=== PATIENT | female | born 1995 | race Caucasian/White ===

== ENCOUNTER 2017-10-08 10:42 | Inpatient (IN) | payer OTHER ==
[2017-10-08 12:16] LABS: ADD MAN DIFF? NO
[2017-10-08 12:18] LABS: WHITE BLOOD COUNT 7.9 10^3/ul (4.8-10.8)
[2017-10-08 12:18] LABS: BASOPHIL # 0.1 10^3/ul (0.0-0.1); BASOPHILS % 0.8 % (0.0-2.0); EOSINOPHILS # 0.3 10^3/ul (0.0-0.5); EOSINOPHILS % 3.2 % (0.0-7.0); HEMATOCRIT 38.8 % (37.0-47.0); HEMOGLOBIN 12.9 g/dl (12.0-16.0); LYMPHOCYTES # 1.6 10^3/ul (0.8-2.9); LYMPHOCYTES % 20.4 % (15.0-51.0); MEAN CORPUSCULAR HEMOGLOBIN 31.6 pg (29.0-33.0); MEAN CORPUSCULAR HGB CONC 33.2 g/dl (32.0-37.0); MEAN CORPUSCULAR VOLUME 95.1 fl (82.0-101.0); MEAN PLATELET VOLUME 9.9 fl (7.4-10.4); MONOCYTE # 0.5 10^3/ul (0.3-0.9); MONOCYTES % 6.7 % (0.0-11.0); NEUTROPHIL # 5.4 10^3/ul (1.6-7.5); NEUTROPHILS % 68.4 % (39.0-77.0); PLATELET COUNT 336 10^3/UL (140-415); RED BLOOD COUNT 4.08 10^6/ul (4.20-5.40); RED CELL DISTRIBUTION WIDTH 12.9 % (11.5-14.5)
[2017-10-08 12:46] LABS: ALANINE AMINOTRANSFERASE 37 IU/L (13-69); ALBUMIN 4.6 g/dl (3.3-4.9); ALBUMIN/GLOBULIN RATIO 1.21; ALKALINE PHOSPHATASE 75 IU/L (42-121); ANION GAP 14 (8-16); ASPARTATE AMINO TRANSFERASE 34 IU/L (15-46); BILIRUBIN,INDIRECT 0.3 mg/dl (0-1.1); BILIRUBIN,TOTAL 0.3 mg/dl (0.2-1.3); BLOOD UREA NITROGEN 8 mg/dl (7-20); CALCIUM 9.3 mg/dl (8.4-10.2); CARBON DIOXIDE 24 mmol/L (21-31); CHLORIDE 107 mmol/L (97-110); CREATININE 0.51 mg/dl (0.44-1.00); GLUCOSE 88 mg/dl (70-220); POTASSIUM 4.4 mmol/L (3.5-5.1); SODIUM 141 mmol/L (135-144); TOTAL PROTEIN 8.4 g/dl (6.1-8.1)
[2017-10-08 12:53] LABS: ADD UMIC YES; UR ASCORBIC ACID NEGATIVE (NEGATIVE); UR BILIRUBIN (Dip) NEGATIVE (NEGATIVE); UR BLOOD (Dip) 2+ mg/dL (NEGATIVE); UR CLARITY CLEAR (CLEAR); UR COLOR YELLOW (YELLOW); UR GLUCOSE (Dip) NEGATIVE (NEGATIVE); UR KETONES (Dip) NEGATIVE (NEGATIVE); UR LEUKOCYTE ESTERASE (Dip) NEGATIVE Leu/ul (NEGATIVE); UR NITRITE (Dip) NEGATIVE (NEGATIVE); UR RBC 3 /HPF (0-5); UR SPECIFIC GRAVITY (Dip) 1.012 (1.003-1.030); UR TOTAL PROTEIN (Dip) NEGATIVE (NEGATIVE); UR UROBILINOGEN (Dip) NEGATIVE (NEGATIVE); UR WBC 1 /HPF (0-5)
[2017-10-08] MEDS ORDERED: ACETAMINOPHEN 325 MG TAB PO (16:30)
[2017-10-08] MEDS ORDERED: ONDANSETRON 4 MG INJ IV (16:30)
[2017-10-09 05:59] LABS: ADD MAN DIFF? NO
[2017-10-09 06:04] LABS: BASOPHILS % 0.5 % (0.0-2.0); EOSINOPHILS # 0.4 10^3/ul (0.0-0.5); EOSINOPHILS % 4.6 % (0.0-7.0); HEMATOCRIT 35.5 % (37.0-47.0); HEMOGLOBIN 11.9 g/dl (12.0-16.0); LYMPHOCYTES # 1.8 10^3/ul (0.8-2.9); LYMPHOCYTES % 24.2 % (15.0-51.0); MEAN CORPUSCULAR HEMOGLOBIN 31.9 pg (29.0-33.0); MEAN CORPUSCULAR HGB CONC 33.5 g/dl (32.0-37.0); MEAN CORPUSCULAR VOLUME 95.2 fl (82.0-101.0); MEAN PLATELET VOLUME 10.1 fl (7.4-10.4); MONOCYTE # 0.8 10^3/ul (0.3-0.9); MONOCYTES % 10.4 % (0.0-11.0); NEUTROPHIL # 4.5 10^3/ul (1.6-7.5); PLATELET COUNT 318 10^3/UL (140-415); RED BLOOD COUNT 3.73 10^6/ul (4.20-5.40)
[2017-10-09 06:04] LABS: WHITE BLOOD COUNT 7.6 10^3/ul (4.8-10.8)
[2017-10-09] MEDS ORDERED: ALBUMIN HUMAN 5% 250 ML INJ (07:00)
[2017-10-09] MEDS ORDERED: GLYCOPYRROLATE 0.4 MG INJ (07:00)
[2017-10-09] MEDS ORDERED: NEOSTIGMINE 3 MG/3 ML SYRINGE (07:00)
[2017-10-09] MEDS: LACTATED RINGER'S 1,000 ML IV ×2 (12:31→20:00)
[2017-10-09] MEDS ORDERED: MIDAZOLAM 1 MG/ML 2 ML INJ (19:21)
[2017-10-09] MEDS ORDERED: ROCURONIUM 50 MG INJ (19:21)
[2017-10-09] MEDS ORDERED: PROPOFOL 20 ML (19:21)
[2017-10-09] MEDS ORDERED: METOCLOPRAMIDE 10 MG INJ (19:22)
[2017-10-09] MEDS ORDERED: ROPIVACAINE 0.5 % 30 ML VIAL (19:22)
[2017-10-09] MEDS ORDERED: ONDANSETRON 4 MG INJ (19:22)
[2017-10-09] MEDS ORDERED: HYDROmorphONE 1 MG/5 ML IV SYRINGE IV (19:30)
[2017-10-09] MEDS ORDERED: DIPHENHYDRAMINE 50 MG INJ IV (19:30)
[2017-10-09] MEDS: VASOPRESSIN 20 UNITS INJ (20:15)
[2017-10-09] MEDS ORDERED: ACETAMINOPHEN 1000MG/100ML IV 100 ML (20:38)
[2017-10-09] MEDS ORDERED: HYDROmorphONE 2 MG/ML SYG (20:38)
[2017-10-09] MEDS ORDERED: CEFAZOLIN 1 GM INJ (20:38)
[2017-10-09] MEDS ORDERED: KETOROLAC 30 MG INJ (20:58)
[2017-10-09] MEDS: ONDANSETRON 4 MG INJ IV (21:40)
[2017-10-09] MEDS: HYDROmorphONE 1 MG/5 ML IV SYRINGE IV ×3 (21:40→22:28)
[2017-10-09] MEDS: MEPERIDINE 25 MG INJ IV (21:41)
[2017-10-10] MEDS: LACTATED RINGER'S 1,000 ML IV ×2 (02:36→14:01)
[2017-10-10] MEDS: OXYCODONE/ACETAMINOPHEN (5/325) TAB PO ×5 (03:00→22:26)
[2017-10-10] MEDS: IBUPROFEN 600 MG TAB PO ×2 (04:45→20:54)
[2017-10-10] MEDS ORDERED: HYDROmorphONE 1 MG/ML SYG (05:54)
[2017-10-10] MEDS: HYDROmorphONE 1 MG/ML SYG IV (06:16)
[2017-10-11] MEDS: OXYCODONE/ACETAMINOPHEN (5/325) TAB PO ×2 (09:00→12:56)
== END 2017-10-11 17:35 | disposition home or self-care (01) | DRG 777 ==
LOC: FTE 10:42 → PP2 16:24
PROC: 10T20ZZ Resection of Products of Conception, Ectopic, Open Approach (ICD-10-PCS; principal; 2017-10-09 19:30)
DX: O00.80 Other ectopic pregnancy without intrauterine pregnancy (principal); D64.9 Anemia, unspecified
CPT/HCPCS: 36415; 76801; 76817; 80053; 81001; 84702; 85025; 86900; 86901; 88305; 99285-25